=== PATIENT | male | born 1970 | race African-American/Black ===

== ENCOUNTER 2016-09-28 03:35 | Emergency (ER) | payer BC, OTHER ==
[2016-09-28 03:50] VITALS: BMI 28.2
--- NOTE | 2016-09-28 03:58 | PDOC ---
History of Present Illness - General History Source: Patient Exam Limitations: No Limitations - History of Present Illness Initial Comments: 09/28/16 04:49 The patient is a 46 year old male with a significant past medical history L5-S1 fracture (surgery 2006) and degenerative disc disease, who presents to the ED with back pain for 6 days. Patient states that he did squats 6 days ago after which he developed lower back pain radiating to his right LE. He states that the pain has progressively worsened since and he has difficulty ambulating. He states that this pain is similar to when he had L5-S1 fracture. He requests morphine for the pain as it is the only thing that helps him and that is what he used to receive when he had his back problem. Patient notes that advil and motrin does not alleviate his symptoms. He denies fever, chills, nausea, vomiting, diarrhea, or constipation. PCP - Dr. Mary Mcelroy <Nini Ron - Last Filed: 09/28/16 04:53> <Yani Gonzalez - Last Filed: 09/28/16 06:59> - General Chief Complaint: Back Pain Stated Complaint: BACK PAIN Time Seen by Provider: 09/28/16 03:57 Past History <Nini Ron - Last Filed: 09/28/16 04:53> - Surgical History Abdominal Surgery: Yes (HERNIA) - Psycho/Social/Smoking Cessation Hx Anxiety: No Suicidal Ideation: No Smoking Status: Yes Smoking History: Unknown if ever smoked Have you smoked in the past 12 months: No Number of Cigarettes Smoked Daily: 12 Information on smoking cessation initiated: No Hx Alcohol Use: No Drug/Substance Use Hx: No <Yani Gonzalez - Last Filed: 09/28/16 06:59> - Past Medical History Allergies/Adverse Reactions: Allergies Allergy/AdvReac Type Severity Reaction Status Date / Time No Known Allergies Allergy Verified 09/28/16 03:43 Home Medications: Ambulatory Orders Methocarbamol [Robaxin -] 500 mg PO TID #30 tablet 09/28/16 Oxycodone HCl/Acetaminophen [Percocet 5/325 -] 1 tab PO Q6H #16 tablet MDD 4 Review of Systems - Review of Systems Able to Perform ROS?: Yes Comments:: 09/28/16 04:50 GENERAL/CONSTITUTIONAL: No fever or chills. No weakness. HEAD, EYES, EARS, NOSE AND THROAT: No change in vision. No ear pain or discharge. No sore throat. CARDIOVASCULAR: No chest pain or shortness of breath. RESPIRATORY: No cough, wheezing, or hemoptysis. GASTROINTESTINAL: No nausea, vomiting, diarrhea or constipation. GENITOURINARY: No dysuria, frequency, or change in urination. MUSCULOSKELETAL: +back pain. No joint or muscle swelling or pain. No neck. SKIN: No rash NEUROLOGIC: No headache, vertigo, loss of consciousness, or change in strength/ sensation. ENDOCRINE: No increased thirst. No abnormal weight change. HEMATOLOGIC/LYMPHATIC: No anemia, easy bleeding, or history of blood clots. ALLERGIC/IMMUNOLOGIC: No hives or skin allergy. <Nini Ron - Last Filed: 09/28/16 04:53> *Physical Exam - Vital Signs Last Vital Signs Temp Pulse Resp BP Pulse Ox 97.4 F L 65 14 142/83 100 09/28/16 03:43 09/28/16 03:43 09/28/16 03:43 09/28/16 03:43 09/28/16 03:43 - Physical Exam Comments: 09/28/16 04:50 GENERAL: Awake, alert, and fully oriented, in no acute distress HEAD: No signs of trauma EYES: PERRLA, EOMI, sclera anicteric, conjunctiva clear ENT: Auricles normal inspection, hearing grossly normal, nares patent, oropharynx clear without exudates. Moist mucosa NECK: Normal ROM, supple, no lymphadenopathy, JVD, or masses LUNGS: Breath sounds equal, clear to auscultation bilaterally. No wheezes, and no crackles HEART: Afib, normal S1 and S2, no murmurs, rubs or gallops ABDOMEN: Soft, nontender, normoactive bowel sounds. No guarding, no rebound. No masses EXTREMITIES: +Left LE straight test negative, +right LE straight leg test positive, +reflexes intact throughout bilaterally in all extremities. Normal range of motion, no edema. No clubbing or cyanosis. No cords, erythema, or tenderness NEUROLOGICAL: Cranial nerves II through XII grossly intact. Normal speech. SKIN: Warm, Dry, normal turgor, no rashes or lesions noted. <Nini Ron - Last Filed: 09/28/16 04:53> - Vital Signs Last Vital Signs Temp Pulse Resp BP Pulse Ox 97.4 F L 65 14 142/83 100 09/28/16 03:43 09/28/16 03:43 09/28/16 03:43 09/28/16 03:43 09/28/16 03:43 <Yani Gonzalez - Last Filed: 09/28/16 06:59> Medical Decision Making - Medical Decision Making 09/28/16 05:34 Patient Name: Toño Castillo THIS IS A PRELIMINARYREPORT FROM [facility] EXAM: CT lumbar spine without contrast IMAGES: [id number] INDICATION: Low back pain radiating down right leg DATE OF SERVICE: 2016-09-28 04:53:18.0 COMPARISON: none FINDINGS: No fracture or subluxation. Status post L5 laminectomy with L5/S1 fusion. No 1/2, L2/3 and L3/4 levels are normal. The L4/5 disc demonstrates a small bulge. There is mild bilateral facet joint arthrosis. Central canal is patent, but there is mild bilateral neural foraminal narrowing. L5/S1 disc is fused. There is residual lateral osteophytic ridging with mild left neural foraminal narrowing. IMPRESSION: Mild bilateral neural foraminal narrowing at the L4/5 level secondary to a small bulge and facet joint arthrosis. Mild left neuroforaminal narrowing at L5/S1 secondary to lateral osteophytic ridging. THIS DOCUMENT HAS BEEN ELECTRONICALLY SIGNED 09/28/16 06:58 Pt is still feeling back pain. I discussed discharge plan, and he was willing to go, but now states that he doesn't want to leave; I will sign him out to the day ER team. <Yani Gonzalez - Last Filed: 09/28/16 06:59> *DC/Admit/Observation/Transfer - Attestations Scribe Attestion: 09/28/16 04:53 Documentation prepared by MEDARDO Soni, acting as medical instrument cable fabricator for Yani Gonzalez MD. <Nini Ron - Last Filed: 09/28/16 04:53> - Discharge Dispostion Admit: No <Yani Gonzalez - Last Filed: 09/28/16 06:59> Diagnosis at time of Disposition: Sciatica - Discharge Dispostion Disposition: HOME Condition at time of disposition: Stable - Prescriptions Prescriptions: Oxycodone HCl/Acetaminophen [Percocet 5/325 -] 1 tab PO Q6H #16 tablet MDD 4 Methocarbamol [Robaxin -] 500 mg PO TID #30 tablet - Referrals Referrals: Mary Hanson MD [Primary Care Provider] - - Patient Instructions Printed Discharge Instructions: DI for Back Pain With Sciatica - Post Discharge Activity Work/School Note: Back to Work
[2016-09-28] MEDS ORDERED: morphine CARPU-JECT 2 MG/1 ML DISP.SYRIN IM ONE (04:39)
[2016-09-28] MEDS ORDERED: morphine CARPU-JECT 2 MG/1 ML DISP.SYRIN ONE ×2 (04:48→05:32)
[2016-09-28] MEDS ORDERED: KETOROLAC TROMETHAMINE 60 MG/2 ML VIAL IM ONE (05:25)
[2016-09-28] MEDS ORDERED: KETOROLAC TROMETHAMINE 30 MG/1 ML VIAL ONE (05:34)
[2016-09-28] MEDS ORDERED: OXYCODONE/APAP 5/325MG COMBO TABLET PO ONE (06:36)
[2016-09-28] MEDS ORDERED: OXYCODONE/APAP 5/325MG COMBO TABLET ONE (06:39)
[2016-09-28] MEDS ORDERED: METHOCARBAMOL 500 MG TABLET PO ONE (06:59)
[2016-09-28] MEDS ORDERED: METHOCARBAMOL 500 MG TABLET ONE ×2 (07:34)
[2016-09-28] MEDS ORDERED: predniSONE 20 MG TABLET (UD) PO ONE (07:45)
[2016-09-28] MEDS ORDERED: HYDROmorphone HCL CARPU-JECT 1 MG/1 ML DISP.SYRIN IM ONE (07:45)
[2016-09-28] MEDS ORDERED: HYDROmorphone HCL CARPU-JECT 1 MG/1 ML DISP.SYRIN ONE ×2 (07:53→08:00)
[2016-09-28] MEDS ORDERED: predniSONE 20 MG TABLET (UD) ONE (07:55)
--- NOTE | 2016-09-28 08:10 | PDOC ---
*Physical Exam - Vital Signs Last Vital Signs Temp Pulse Resp BP Pulse Ox 97.4 F L 65 14 142/83 100 09/28/16 03:43 09/28/16 03:43 09/28/16 03:43 09/28/16 03:43 09/28/16 03:43 - Physical Exam Comments: 09/28/16 08:10 The complaining of discomfort to his right low back, intermittently radiating down the leg Otherwise alert in stretcher, moving all extremities 5 out of 5 flexion and extension of bilateral hips/knees/ankle/toes. Neurovascularly intact distally. ED Treatment Course - Medications Given in the ED: ED Medications Discontinued Medications Generic Name Dose Route Start Last Admin Trade Name Freq PRN Reason Stop Dose Admin Ketorolac Tromethamine 60 mg 09/28/16 05:25 09/28/16 05:33 Toradol Injection - IM 09/28/16 05:26 60 mg ONCE ONE Administration Methocarbamol 1,000 mg 09/28/16 06:59 09/28/16 07:40 Robaxin - PO 09/28/16 07:00 1,000 mg ONCE ONE Administration Morphine Sulfate 2 mg 09/28/16 04:39 09/28/16 04:52 Morphine Injection - IM 09/28/16 04:40 2 mg ONCE ONE Administration Oxycodone/Acetaminophen 2 combo 09/28/16 06:36 09/28/16 06:41 Percocet 5/325 - PO 09/28/16 06:37 2 combo ONCE ONE Administration Medical Decision Making - Medical Decision Making 09/28/16 08:11 Received signout on this 46-year-old male with history of L5/S1 laminectomy(?) in 2006 who now presents with right low back pain radiating down his right leg for the last few days after he was working out at the gym. No direct trauma, a CT of the L-spine was performed on the overnight shift and showed some neural foraminal stenosis and mild disc bulge. The patient has been neurologically intact throughout his ED visit, he was given low dose IM morphine and Toradol without relief, and upon plan for discharge patient stated he was still in too much pain he was signed out for pain control. Remains neurologically intact, Will trial IM Dilaudid and steroids, reassess and dispo accordingly to his PMD/neurologist/neurosurgeon. 09/28/16 09:35 Markedly improved after above medications. Ambulating steadily, remains neuro intact. Will add steroids to prior regimen, given crutches for comfort, understands return criteria. Has f/u in place. *DC/Admit/Observation/Transfer Diagnosis at time of Disposition: Sciatica Qualifiers: Laterality: right Qualified Code(s): M54.31 - Sciatica, right side - Discharge Dispostion Disposition: HOME Condition at time of disposition: Stable - Prescriptions Prescriptions: Methylprednisolone [Medrol Dose Benedict] 4 mg PO ASDIR #21 tablet Oxycodone HCl/Acetaminophen [Percocet 5/325 -] 1 tab PO Q6H #16 tablet MDD 4 Methocarbamol [Robaxin -] 500 mg PO TID #30 tablet - Referrals Referrals: Mary Hanson MD [Primary Care Provider] - - Patient Instructions Printed Discharge Instructions: DI for Back Pain With Sciatica - Post Discharge Activity Work/School Note: Back to Work
[2016-09-28 09:24] VITALS: BP 124/70; PULSE 67; TEMP 98.4
== END 2016-09-28 09:00 | disposition home or self-care (01) ==
LOC: JER 03:35
PROC: 3E0233Z Introduction of Anti-inflammatory into Muscle, Percutaneous Approach (ICD-10-PCS; principal; 2016-09-28)
PROC: 3E023NZ Introduction of Analgesics, Hypnotics, Sedatives into Muscle, Percutaneous Approach (ICD-10-PCS; 2016-09-28)
PROC: 3E023NZ Introduction of Analgesics, Hypnotics, Sedatives into Muscle, Percutaneous Approach (ICD-10-PCS; 2016-09-28)
DX: M54.41 Lumbago with sciatica, right side (principal)
CPT/HCPCS: 72131-TC; 99282-25